=== PATIENT | male | born 1950 | race Caucasian/White ===

== ENCOUNTER 2023-11-07 09:21 | Outpatient (CLI) | payer OTHER, SELFPAY | END 2023-11-07 09:22 | disposition home or self-care (01) | LOC: AMB 11-09 02:04 | PROVIDERS: PCP Family Medicine; Visit Provider Family Medicine | DX: S19.9XXA Unspecified injury of neck, initial encounter (principal); W06.XXXA Fall from bed, initial encounter; Y92.003 Bedroom of unspecified non-institutional (private) residence as the place of occurrence of the external cause | CPT/HCPCS: A0425; A0427 ==